=== PATIENT | female | born 1945 | race Caucasian/White ===

== ENCOUNTER → 2018-08-21 | Outpatient (CLI) | payer MEDICARE ==
--- NOTE | 2018-08-22 12:26 | MM ---
Reason for exam: screening (asymptomatic). Last mammogram was performed 1 year ago. History: Patient is postmenopausal, history of other cancer, and had first child at age 35. Took hormonal contraceptives for 5 years. Physical Findings: A clinical breast exam by your physician is recommended on an annual basis and results should be correlated with mammographic findings. MG 3D Screening Mammo W/Cad Bilateral CC and MLO view(s) were taken. Prior study comparison: August 14, 2017, bilateral MG 3d screening mammo w/cad. August 28, 2013, bilateral digital screening mammo w/CAD. There are scattered fibroglandular densities. There is no discrete abnormality. No significant changes when compared with prior studies. ASSESSMENT: Negative, BI-RAD 1 RECOMMENDATION: Routine screening mammogram of both breasts in 1 year.
== END | disposition home or self-care (01) ==
LOC: RADMAMWWP 09:50
PROVIDERS: ATTEND Internal Medicine Geriatric Medicine
DX: Z12.31 Encounter for screening mammogram for malignant neoplasm of breast (principal)
CPT/HCPCS: 77063; 77067

== ENCOUNTER → 2019-09-03 | Outpatient (CLI) | payer MEDICARE ==
--- NOTE | 2019-09-04 07:33 | BD ---
EXAMINATION TYPE: Axial Bone Density DATE OF EXAM: 09/03/2019 COMPARISON: 08.13.2017 CLINICAL HISTORY: 74 YR OLD FEMALE.....ICD-10 CODE: M81.1 AGE RELATED OSTEOPOROSIS Height: 58.5 Weight: 185 FRAX RISK QUESTIONS: NOTHING TO NOTE HERE RISK FACTORS HISTORY OF: Surgery to Spine DISC ONLY 4-5 YRS AGO Family History of Osteoporosis: UNKNOWN Postmenopausal woman: YES AT AGE 54, HRT FOR 5 YRS IN PAST...NONE NOW Lost more than 2 inches in height since high school: YES Hyperparathyroidism: NO Adrenal Insufficiency: NO MEDICATIONS: Additional Medications: FLUOXITINE, STATIN FOR CHOLESTEROL, MULTIVITAMIN Additional History: CHOLESTEROL, ANXIETY EXAM MEASUREMENTS: Bone mineral densitometry was performed using the [employer] System. Bone mineral density as measured about the Lumbar spine is: ----- L1-L4(G/cm2): 1.364 T Score Values are as follows: ----- L1: 0.8 ----- L2: 1.9 ----- L3: 2.1 ----- L4: 1.2 ----- L1-L4: 1.5 Bone mineral density has: Increased 12.1% since study of: 08.13.2017 Bone mineral density about the R hip (g/cm2): 1.086 Bone mineral density about the L hip (g/cm2): 1.062 T Score values are as follows: -----R Neck: 0.2 -----L Neck: -0.3 -----R Total: 0.6 -----L Total: 0.4 Bone mineral density has: Increased 0.6% since study of: 08.13.2017 FRAX%s: THERE IS A 7.3% CHANCE FOR A MAJOR OSTEOPOROTIC FX AND A 0.6% FOR HIP.....PROBABILITY FOR FX IN 10 YRS TIME IMPRESSION: No evidence for osteoporosis or osteopenia. NOTE: T-SCORE=SD OF THE YOUNG ADULT MEAN.
--- NOTE | 2019-09-07 09:39 | MM ---
Reason for exam: screening (asymptomatic). Last mammogram was performed 1 year ago. History: Patient is postmenopausal, history of other cancer, and had first child at age 35. Took hormonal contraceptives for 5 years. Physical Findings: A clinical breast exam by your physician is recommended on an annual basis and results should be correlated with mammographic findings. MG 3D Screening Mammo W/Cad Bilateral CC and MLO view(s) were taken. Prior study comparison: August 21, 2018, bilateral MG 3d screening mammo w/cad. August 14, 2017, bilateral MG 3d screening mammo w/cad. There are scattered fibroglandular densities. Stable benign calcifications. There is no discrete abnormality. No significant changes when compared with prior studies. ASSESSMENT: Benign, BI-RAD 2 RECOMMENDATION: Routine screening mammogram of both breasts in 1 year.
== END | disposition home or self-care (01) ==
LOC: RADMAMWWP 10:04
PROVIDERS: ATTEND Internal Medicine Geriatric Medicine
DX: Z12.31 Encounter for screening mammogram for malignant neoplasm of breast (principal); M81.0 Age-related osteoporosis without current pathological fracture
CPT/HCPCS: 77063; 77067; 77080

== ENCOUNTER 2020-10-10 13:54 | Emergency (ER) | payer MEDICARE ==
[2020-10-10 13:58] VITALS: TEMP 98.3
[2020-10-10] MEDS ORDERED: SODIUM CHLORIDE 0.9% 1,000 ML IV ONE (14:18)
[2020-10-10 14:38] LABS: Basophils % (A) 1 %; Eosinophils # (A) 0.1 k/uL (0-0.7); Eosinophils % (A) 2 %; HCT 44.2 % (34.0-46.0); HGB 15.3 gm/dL (11.4-16.0); Lymphocytes # (A) 2.1 k/uL (1.0-4.8); Lymphocytes % (A) 35 %; MCH 31.8 pg (25.0-35.0); MCHC 34.7 g/dL (31.0-37.0); MCV 91.5 fL (80.0-100.0); Monocytes # (A) 0.3 k/uL (0-1.0); Monocytes % (A) 5 %; Neutrophils # (A) 3.2 k/uL (1.3-7.7); Neutrophils % (A) 54 %; Platelet Count 167 k/uL (150-450); RBC 4.83 m/uL (3.80-5.40); WBC 5.9 k/uL (3.8-10.6)
--- NOTE | 2020-10-10 14:38 | ED ---
General Adult HPI - General Chief complaint: Shortness of Breath Stated complaint: +COVID, SOB Time Seen by Provider: 10/10/20 14:10 Source: patient Mode of arrival: wheelchair Limitations: no limitations - History of Present Illness Initial comments: 75-year-old female patient presents to the emergency department today for evaluation of increased fatigue and weakness. States she was diagnosed with COVID-19 about 5 days ago and is not feeling any better. States she is very fatigued and tired. States she has mild intermittent cough. Denies any sig nificant shortness of breath. States she has no taste, no smell, no appetite. States she is making herself eat and drink. States she is taking a lot of water. States that she does have some mild intermittent confusion as well. Denies any fever or chills. Patient denies any recent rash, chest pain, abdominal pain, nausea, vomiting, diarrhea, constipation, back pain, numbness, tingling, dizziness, hematuria, dysuria, urinary urgency, urinary frequency, headache, visual changes, or any other complaints. - Related Data Home Medications Medication Instructions Recorded Confirmed Aspirin EC [Ecotrin Low Dose] 81 mg PO HS 10/10/20 10/10/20 PARoxetine HCL [Paxil] 40 mg PO HS 10/10/20 10/10/20 Simvastatin [Zocor] 20 mg PO HS 10/10/20 10/10/20 metFORMIN HCL [Glucophage] 500 mg PO BID 10/10/20 10/10/20 Allergies Allergy/AdvReac Type Severity Reaction Status Date / Time codeine Allergy Rash/Hives Verified 10/10/20 15:14 ibuprofen [From Advil] Allergy Rash/Hives Verified 10/10/20 15:14 Sulfa (Sulfonamide Allergy Unknown Verified 10/10/20 15:14 Antibiotics) venom-honey bee Allergy Swelling Verified 10/10/20 15:14 [bee venom (honey bee)] hydromorphone HCl AdvReac Hallucinati Verified 10/10/20 15:14 [From Dilaudid] ons Review of Systems ROS Statement: Those systems with pertinent positive or pertinent negative responses have been documented in the HPI. ROS Other: All systems not noted in ROS Statement are negative. Past Medical History Past Medical History: Asthma, Hyperlipidemia Additional Past Medical History / Comment(s): back pain lumbago, asthma in last year History of Any Multi-Drug Resistant Organisms: None Reported Past Surgical History: Section, Tonsillectomy Additional Past Surgical History / Comment(s): eye rectal prolapse Past Anesthesia/Blood Transfusion Reactions: No Reported Reaction Past Psychological History: Depression Past Alcohol Use History: Occasional Past Drug Use History: None Reported General Exam Limitations: no limitations General appearance: alert, in no apparent distress, other (Physical well- developed, well-nourished adult female patient in no acute distress. Vital signs upon presentation are temperature 98.3F, pulse 77, respirations 18, blood pressure 165/95, pulse ox 96% on room air.) Respiratory exam: Present: normal lung sounds bilaterally. Absent: respiratory distress, wheezes, rales, rhonchi, stridor Cardiovascular Exam: Present: regular rate, normal rhythm, normal heart sounds. Absent: systolic murmur, diastolic murmur, rubs, gallop, clicks GI/Abdominal exam: Present: soft, normal bowel sounds. Absent: distended, tenderness, guarding, rebound, rigid Neurological exam: Present: alert, oriented X3, CN II-XII intact Psychiatric exam: Present: normal affect, normal mood Skin exam: Present: warm, dry, intact, normal color. Absent: rash Course Vital Signs 10/10/20 10/10/20 13:55 15:17 Temperature 98.3 F Pulse Rate 77 73 Respiratory 18 20 Rate Blood Pressure 165/95 133/86 O2 Sat by Pulse 96 98 Oximetry Medical Decision Making - Medical Decision Making 75-year-old female patient presents to the emergency department today for increased fatigue due to recent diagnosis of COVID-19 she reports minimal shortness of breath and cough. Denies any fever. Physical examination is unremarkable. Labs reviewed and are unremarkable. We did discuss findings, she will be discharged home at this time. We'll give her 1 dose of Decadron here. She is instructed to follow-up with her primary care physician for recheck in 1- 2 days. Return parameters were discussed in great detail. She verbalizes understanding and agrees with this plan. - Lab Data Result diagrams: 10/10/20 14:22 10/10/20 14:23 Lab Results 10/10/20 10/10/20 Range/Units 14:22 14:23 WBC 5.9 (3.8-10.6) k/uL RBC 4.83 (3.80-5.40) m/uL Hgb 15.3 (11.4-16.0) gm/dL Hct 44.2 (34.0-46.0) % MCV 91.5 (80.0-100.0) fL MCH 31.8 (25.0-35.0) pg MCHC 34.7 (31.0-37.0) g/dL RDW 12.0 (11.5-15.5) % Plt Count 167 (150-450) k/uL MPV 8.0 Neutrophils % 54 % Lymphocytes % 35 % Monocytes % 5 % Eosinophils % 2 % Basophils % 1 % Neutrophils # 3.2 (1.3-7.7) k/uL Lymphocytes # 2.1 (1.0-4.8) k/uL Monocytes # 0.3 (0-1.0) k/uL Eosinophils # 0.1 (0-0.7) k/uL Basophils # 0.0 (0-0.2) k/uL Sodium 138 (137-145) mmol/L Potassium 4.2 (3.5-5.1) mmol/L Chloride 107 (98-107) mmol/L Carbon Dioxide 25 (22-30) mmol/L Anion Gap 6 mmol/L BUN 13 (7-17) mg/dL Creatinine 0.64 (0.52-1.04) mg/dL Est GFR (CKD-EPI)AfAm >90 (>60 ml/min/1.73 sqM) Est GFR (CKD-EPI)NonAf 88 (>60 ml/min/1.73 sqM) Glucose 97 (74-99) mg/dL Calcium 9.2 (8.4-10.2) mg/dL Total Bilirubin 0.8 (0.2-1.3) mg/dL AST 29 (14-36) U/L ALT 18 (4-34) U/L Alkaline Phosphatase 101 (38-126) U/L Lactate Dehydrogenase 417 (313-618) U/L C-Reactive Protein <5.0 (<10.0) mg/L Total Protein 7.4 (6.3-8.2) g/dL Albumin 4.1 (3.5-5.0) g/dL - Radiology Data Radiology results: report reviewed, image reviewed One view x-ray of the chest is obtained. Report was reviewed in its entirety. Impression by Dr. Benjamin shows no acute process. Exam somewhat limited technically, consider follow-up PA and lateral chest x-ray. Disposition Clinical Impression: COVID-19 Disposition: HOME SELF-CARE Condition: Good Instructions (If sedation given, give patient instructions): Viral Syndrome (ED) Additional Instructions: Follow up with the primary care physician for recheck in 1-2 days. Increase f luids, make sure you are eating. Return for new, worsening, or concerning symptoms. Is patient prescribed a controlled substance at d/c from ED?: No Referrals: Ag Ulloa MD [Primary Care Provider] - 1-2 days Time of Disposition: 15:22
--- NOTE | 2020-10-10 14:51 | XR ---
EXAMINATION TYPE: XR chest 1V DATE OF EXAM: 10/10/2020 COMPARISON: NONE HISTORY: Cough, Covid positive TECHNIQUE: Single frontal view of the chest is obtained. FINDINGS: Lower lungs not as well seen due to overlying soft tissue. There are overlying cardiac lead s. There is no focal air space opacity, pleural effusion, or pneumothorax seen. The cardiac silhouet te size is within normal limits. Right hemidiaphragm is elevated. The osseous structures are intact. IMPRESSION: No acute process. Exam somewhat limited technically, consider follow-up PA and lateral c hest x-ray.
[2020-10-10 14:52] LABS: ALT 18 U/L (4-34); AST 29 U/L (14-36); African American GFR (CKD) >90 (>60 ml/min/1.73 sqM); Albumin 4.1 g/dL (3.5-5.0); Alkaline Phosphatase 101 U/L (38-126); Anion Gap 6 mmol/L; Blood Urea Nitrogen 13 mg/dL (7-17); C Reactive Protein <5.0 mg/L (<10.0); Calcium 9.2 mg/dL (8.4-10.2); Carbon Dioxide 25 mmol/L (22-30); Chloride 107 mmol/L (98-107); Glucose 97 mg/dL (74-99); LDH 417 U/L (313-618); Non-African American GFR(CKD) 88 (>60 ml/min/1.73 sqM); Potassium 4.2 mmol/L (3.5-5.1); Sodium 138 mmol/L (137-145); Total Bilirubin 0.8 mg/dL (0.2-1.3); Total Protein 7.4 g/dL (6.3-8.2)
[2020-10-10 15:18] VITALS: PULSE 73
[2020-10-10] MEDS ORDERED: DEXAMETHASONE SOD PHOSPHATE 10 MG/ML 1 ML VIAL IV STA (15:22)
[2020-10-10 16:08] VITALS: BP 149/88; RESP 18
== END 2020-10-10 16:09 | disposition home or self-care (01) ==
LOC: EC 13:54
DX: U07.1 COVID-19 (principal); E78.5 Hyperlipidemia, unspecified; F32.9 Major depressive disorder, single episode, unspecified; Z79.899 Other long term (current) drug therapy; Z88.2 Allergy status to sulfonamides; Z88.5 Allergy status to narcotic agent; Z88.6 Allergy status to analgesic agent; Z88.8 Allergy status to other drugs, medicaments and biological substances
CPT/HCPCS: 36415; 80053; 83615; 85025; 86140; 71045; 99285; 96374; 96361; J1100

== ENCOUNTER → 2021-01-25 | Outpatient (CLI) | payer MEDICARE ==
--- NOTE | 2021-01-25 12:41 | MM ---
Reason for exam: screening (asymptomatic). Last mammogram was performed 1 year and 5 months ago. History: Patient is postmenopausal, history of other cancer, and had first child at age 35. Took hormonal contraceptives for 5 years. Physical Findings: A clinical breast exam by your physician is recommended on an annual basis and results should be correlated with mammographic findings. MG 3D Screening Mammo W/Cad Bilateral CC and MLO view(s) were taken. Prior study comparison: September 03, 2019, bilateral MG 3d screening mammo w/cad. August 21, 2018, bilateral MG 3d screening mammo w/cad. There are scattered fibroglandular densities. There are benign appearing vascular calcifications in the left breast. There is chronic nodularity in the left breast. There is no discrete abnormality. ASSESSMENT: Benign, BI-RAD 2 RECOMMENDATION: Routine screening mammogram of both breasts in 1 year.
--- NOTE | 2021-01-25 16:13 | XR ---
EXAMINATION TYPE: XR chest 2V DATE OF EXAM: 01/25/2021 COMPARISON: Chest x-ray 10/10/2020 HISTORY: Covid 19, U07.1, abnormal chest x-ray TECHNIQUE: Frontal and lateral views of the chest are obtained. FINDINGS: There is linear density at the left lung base likely reflecting atelectasis or scar, no ev ident mass, no pleural effusion, or pneumothorax seen. The cardiac silhouette size is within normal limits. There is stable elevation of right hemidiaphragm. The osseous structures are intact, arthrop athy noted in the shoulders, there is a spinal curvature. The aorta is dense and tortuous. IMPRESSION: No acute cardiopulmonary process.
== END | disposition home or self-care (01) ==
LOC: RADMAMWWP 08:09
PROVIDERS: ATTEND Internal Medicine Geriatric Medicine
DX: Z12.31 Encounter for screening mammogram for malignant neoplasm of breast (principal); U07.1 COVID-19
CPT/HCPCS: 71046; 77063; 77067

== ENCOUNTER → 2021-08-15 | Outpatient (CLI) | payer MEDICARE ==
--- NOTE | 2021-08-15 11:58 | XR ---
Lumbar spine HISTORY: M48.061 3 views of the lumbar spine, no comparisons There is multilevel spondylosis. Lumbar vertebral bodies show preserved height, reduced bone minerali zation, alignment is maintained with exception of minimal anterolisthesis grade 1 L5-S1. Sclerosis is present in the posterior elements of the lumbar spine. Loss of disc height is present at the interve rtebral levels. The spinal curvature. IMPRESSION: Degenerative disc disease and facet arthropathy. Osteopenia. Delgado gliosis.
== END | disposition home or self-care (01) ==
LOC: RADXRMAIN 09:34
PROVIDERS: ATTEND Internal Medicine Geriatric Medicine
DX: M51.36 Other intervertebral disc degeneration, lumbar region (principal); M47.816 Spondylosis without myelopathy or radiculopathy, lumbar region
CPT/HCPCS: 72100

== ENCOUNTER → 2022-11-05 | Outpatient (CLI) | payer MEDICARE ==
--- NOTE | 2022-11-05 15:44 | BD ---
EXAMINATION TYPE: Axial Bone Density DATE OF EXAM: 11/05/2022 COMPARISON: 09/03/2019 DEXA bone scan. CLINICAL HISTORY: 77 years old Female. ICD-10 CODE: M81.0 AGE RELATED OSTEOPOROSIS Height: 58.5 Weight: 208 FRAX RISK QUESTIONS: Family History (Parent hip fracture): NO History of Fracture in Adulthood: YES 03/2022 RT KNEE Secondary Osteoporosis: NO Rheumatoid Arthritis: NO RISK FACTORS HISTORY OF: Surgery to Spine: YES DISC ONLY NO HARDWARE When: 2013 Family History of Osteoporosis: NO Active: YES Diet low in dairy products/other sources of calcium: NO Postmenopausal woman: YES Lost more than 2 inches in height since high school: YES WAS 62 Frequent falls: YES IN PAST 2 YEARS ...NONE LAST 6 MONTHS Poor Health: NO MEDICATIONS: Additional Medications: YES BABY ASA , STATIN FOR CHOLESTEROL, MULTIVITAMIN , ANXIETY , ROSUVASTATIN Additional History: YES VIT D EXAM MEASUREMENTS: Bone mineral densitometry was performed using the [employer] System. Bone mineral density as measured about the Lumbar spine is: ----- L1-L4(G/cm2): 1.296 T Score Values are as follows: ----- L1: 1.1 ----- L2: 1.4 ----- L3: 0.9 ----- L4: 0.4 ----- L1-L4: 1.0 Bone mineral density has: Decreased -5.0% since study of: 09/03/2019 Bone mineral density about the R hip (g/cm2): 1.023 Bone mineral density about the L hip (g/cm2): 1.060 T Score values are as follows: -----R Neck: -0.1 -----L Neck: 0.1 -----R Total: 0.1 -----L Total: 0.4 Bone mineral density has: Decreased -3.0% since study of: 09/03/2019 FRAX%s: The graph provided illustrates a 10.9% chance for a major osteoporotic fx and a 0.9% chance f or the hips probability for fx in 10 years time. IMPRESSION: Normal (Values between +1 and -1 indicate normal bone mass). Consider repeating this study in 5 year s or sooner if there is some new clinical indication. NOTE: T-SCORE=SD OF THE YOUNG ADULT MEAN.
--- NOTE | 2022-11-06 20:38 | MM ---
Reason for Exam: Screening (asymptomatic). Last mammogram was performed 1 year(s) and 9 month(s) ago. Patient History: Menarche at age 14. First Full-Term at age 35. Late child-bearing (after 30). Postmenopausal. Other cancer. Patient used Hormonal Contraceptives for 5 years. Risk Values: Adenike 5 year model risk: 2.4%. NCI Lifetime model risk: 4.9%. Prior Study Comparison: 08/21/2018 Bilateral Screening Mammogram, [facility]. 09/03/2019 Bilateral Screening Mammogram, [facility]. 01/25/2021 Bilateral Screening Mammogram, [facility]. Tissue Density: There are scattered fibroglandular densities. Findings: Analyzed By CAD. Benign vascular calcifications in both sides. Areas of asymmetric density are unchanged. There is no suspicious group of microcalcifications or new suspicious mass in either breast. Overall Assessment: Benign, BI-RAD 2 Management: Screening Mammogram of both breasts in 1 year. 1. Patient should continue monthly self breast exams. 2. A clinical breast exam by your physician is recommended on an annual basis. 3. This exam should not preclude additional follow-up of suspicious palpable abnormalities. Electronically signed and approved by: Amilcar Angelo M.D. Radiologist
== END | disposition home or self-care (01) ==
LOC: RADMAMWWP 14:20
PROVIDERS: ATTEND Internal Medicine Geriatric Medicine
DX: Z12.31 Encounter for screening mammogram for malignant neoplasm of breast (principal); M81.0 Age-related osteoporosis without current pathological fracture; Z78.0 Asymptomatic menopausal state
CPT/HCPCS: 77063; 77067; 77080

== ENCOUNTER → 2024-04-23 | Outpatient (CLI) | payer MEDICARE ==
--- NOTE | 2024-04-30 21:55 | MM ---
Reason for Exam: Screening (asymptomatic). Last mammogram was performed 1 year(s) and 6 month(s) ago. Patient History: Menarche at age 14. First Full-Term at age 35. Late child-bearing (after 30). Postmenopausal. Other cancer. Patient used Hormonal Contraceptives for 5 years. Risk Values: Adenike 5 year model risk: 2.4%. NCI Lifetime model risk: 4.6%. Prior Study Comparison: 09/03/2019 Bilateral Screening Mammogram, [facility]. 01/25/2021 Bilateral Screening Mammogram, [facility]. 11/05/2022 Bilateral MG 3D screening mammo w/cad, [facility]. Tissue Density: There are scattered areas of fibroglandular density. Findings: Analyzed By CAD. There is no suspicious group of microcalcifications or new suspicious mass in either breast. Overall Assessment: Negative, BI-RAD 1 Management: Screening Mammogram of both breasts in 1 year. . Patient should continue monthly self-breast exams. A clinical breast exam by your physician is recommended on an annual basis. This exam should not preclude additional follow-up of suspicious palpable abnormalities. Note on Adenike scores and lifetime risk: 1. A Adenike score greater than 3% is considered moderate risk. If this is the case, consider specialist referral to assess eligibility for a risk reducing agent. 2. If overall lifetime risk for the development of breast cancer is 20% or higher, the patient may qualify for future screening with alternating mammogram and breast MRI. Electronically signed and approved by: Amilcar Angelo M.D. Radiologist
== END | disposition home or self-care (01) ==
LOC: RADMAMWWP 10:26
PROVIDERS: ATTEND Internal Medicine Geriatric Medicine
DX: Z12.31 Encounter for screening mammogram for malignant neoplasm of breast (principal); Z78.0 Asymptomatic menopausal state
CPT/HCPCS: 77063; 77067